=== PATIENT | male | born 1970 | race Caucasian/White ===

== ENCOUNTER 2019-09-11 09:37 | Emergency (ER) | payer BC ==
[2019-09-11 10:04] VITALS: BP 132/76
--- NOTE | 2019-09-11 10:24 | UC ---
HPI Wound/Suture Re-check - HPI Summary HPI Summary: Patient presents to urgent care requesting a tetanus vaccine. Patient's 49-year -old man. Patient is not advised. Patient stepped on a nail that went through board into his foot. Patient states it happened on Tuesday. Patient states he washed it. Patient states yesterday he used in about a minute of Band-Aid. Patient states he certainly doesn't is within 10 years old. Patient denies any pain drainage redness over the wound. Patient's medications review this visit. Patient is not a diabetic. Patient was wearing factors. - History Of Current Complaint Chief Complaint: Ruth Stated Complaint: RT FOOT INJURY Time Seen by Provider: 09/11/19 10:19 Hx Obtained From: Patient Severity: Mild Pain Intensity: 0 Pain Scale Used: 0-10 Numeric - Allergies/Home Medications Allergies/Adverse Reactions: Allergies Allergy/AdvReac Type Severity Reaction Status Date / Time iodine Allergy Itching Verified 09/11/19 10:04 shellfish derived Allergy Itching Verified 09/11/19 10:04 Home Medications: Home Medications Aspirin [Adult Low Dose Aspirin EC] 1 tab PO DAILY 09/11/19 [History Confirmed 09/11/19] Ezetimibe TAB* [Zetia TAB*] 10 mg PO DAILY 09/11/19 [History Confirmed 09/11/19] Lisinopril/Hydrochlorothiazide [Lisinopril-Hctz 20-25 mg Tab] 1 each PO DAILY [History Confirmed 09/11/19] Pantoprazole Sodium [Protonix] 20 mg PO DAILY 09/11/19 [History Confirmed ] lamoTRIgine [Lamictal] 75 mg PO DAILY 09/11/19 [History Confirmed 09/11/19] PMH/Surg Hx/FS Hx/Imm Hx Previously Healthy: Yes Cardiovascular History: Hypertension - Surgical History Surgical History: Yes Surgery Procedure, Year, and Place: cholycysectomy. hernia repair. L rotator cuff - Family History Known Family History: Positive: Non-Contributory - Social History Occupation: Employed Full-time Lives: With Family Alcohol Use: Occasionally Substance Use Type: None Smoking Status (MU): Current Some Day Smoker Review of Systems All Other Systems Reviewed And Are Negative: Yes Constitutional: Positive: Negative Skin: Positive: Other - Puncture wound left foot Physical Exam - Summary Physical Exam Summary: Vital Signs Reviewed: Yes A+Ox3, no distress Eyes: Conjunctiva Clear ENT: Hearing grossly normal neck: supple Respiratory: Positive: No respiratory distress, No accessory muscle use Cardiovascular: skin color reflect adequate perfusion Musculoskeletal Exam: ESCOBEDO x 4 without difficulty + flex/ext ankle, great toe no pain Neurological: Positive: Alert, ambulatory without difficulty Psychological: Positive: Normal Response To examiner Skin: Positive: no rash, no ecchymosis, pt with small 2mm are of ecchymosis left foot - bottom, lateral edge. No edema, odor, drainage, reddness, induration , pain with palp. small ecchymosis Triage Information Reviewed: Yes Vital Signs: Initial Vital Signs Temp 97.9 F 09/11/19 09:59 Pulse 84 09/11/19 09:59 Resp 16 09/11/19 09:59 BP 132/76 09/11/19 09:59 Pulse Ox 98 09/11/19 09:59 Course/Dx - Course Course Of Treatment: Patient presents to urgent care for consideration of tetanus booster. Patient states he stepped on a nail on Tuesday night. Patient without any concerns regarding the wound. Upon reviewing [facility] stable. Patient's wound is clean appearing without any concern for infection. Because of a small ecchymosis. Drainage wound was gently milked. We'll give patient tetanus booster. Discussed with patient includes pertussis. Motrin and Tylenol. Strict return precautions regarding the wound. Patient on formula and plan. Patient's interaction or allergy to tetanus vaccinations in the past. - Diagnosis Provider Diagnosis: Need for tetanus booster, Puncture wound Discharge ED - Sign-Out/Discharge Documenting (check all that apply): Patient Departure All imaging exams completed and their final reports reviewed: No Studies - Discharge Plan Condition: Stable Disposition: HOME Patient Education Materials: Diphtheria/Acellular Pertussis/Tetanus Booster Vaccine (By injection), Puncture Wound (ED) Referrals: Kavin ROCKWELL,Mellissa Snell [Primary Care Provider] - Additional Instructions: - Wash wound with warm soapy water 2 times a day. Pat dry. Cover with antibiotic ointment and a bandage. -Cover your wound with bandage when wearing shoes - Monitor wound for signs of infection. Redness, red streaking, motor, increased pain, drainage. If you have any concerns you should be rechecked for infection - Okay to take ibuprofen and Tylenol as needed for pain or fever - You receive a tetanus vaccine today. There are likely be sore tomorrow. This is normal. If you have any other concerns he should seek reevaluation. As discussed, tetanus vaccine is 15 years us to have a substantial dirty wound . As discussed, your vaccination also will immunize you again against pertussis, the agent that causes whooping cough. - Billing Disposition and Condition Condition: STABLE Disposition: Home
[2019-09-11] MEDS ORDERED: Tetan/Diph/Pertus SYR(Tdap)* 0.5 ML SYR(BOOSTRIX) use SYR contains LATEX IM ONE (10:29)
== END 2019-09-11 10:47 | disposition home or self-care (01) ==
LOC: UCCORT 09:37
DX: S91.332A Puncture wound without foreign body, left foot, initial encounter (principal); I10 Essential (primary) hypertension; F17.200 Nicotine dependence, unspecified, uncomplicated; Z23 Encounter for immunization; Z79.899 Other long term (current) drug therapy; Z91.09 Other allergy status, other than to drugs and biological substances; Z79.82 Long term (current) use of aspirin; Z91.013 Allergy to seafood; W45.0XXA Nail entering through skin, initial encounter; Y92.9 Unspecified place or not applicable
CPT/HCPCS: 90715; 96372; 99201; G0463